=== PATIENT | female | born 1945 | race Caucasian/White ===

== ENCOUNTER → 2018-01-03 15:15 | Outpatient (CLI) | payer OTHER, SELFPAY ==
--- NOTE | 2018-01-03 15:19 | DI.RAD.S_ITS ---
PROCEDURE: XR LUMBAR SPINE 2-3V INDICATIONS: Chronic low back pain. TECHNIQUE: 3 views of the lumbar spine were acquired. COMPARISON: None. FINDINGS: Bones: 5 [id number] vertebrae are present. Loss of lordosis. Grade 1 spondylolisthesis L3-L4 and L4-L5. Grade one retrolisthesis L5-S1. Multilevel disc degeneration, severe L5-S1. Moderate L3-L4, L4-L5 and L5-S1 facet joint arthropathy. No vertebral body compression fractures. No suspicious bony lesions. Soft tissues: Overlying bowel gas pattern is normal. No suspicious soft tissue calcifications. Vascular calcifications indicate atherosclerosis. IMPRESSION: Multilevel degenerative change. Dictated by: Otis SALAS Interpreted: Jama Minor MD on 01/03/2018 at 15:40 Approved by: Jama Minor M.D. on 01/06/2018 at 9:54
--- NOTE | 2018-01-03 15:19 | DI.RAD.S_ITS ---
PROCEDURE: XR HIP W PEL IF DONE LT MIN 4V INDICATIONS: Chronic low back pain. TECHNIQUE: AP pelvis with lateral view(s) of the left and right hip(s). COMPARISON: [facility], , XR LUMBAR SPINE 2-3V, 01/03/2018, 14:56. FINDINGS: Bones: No fractures or dislocations. Pelvic ring appears intact. No suspicious bony lesions. Mild symmetric hip and SI joint narrowing with periarticular osteophyte formation. Degenerative disc and facet disease involves the inferior lumbar spine. Soft tissues: The visualized bowel gas pattern is normal. No suspicious soft tissue calcifications. 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 Dictated by: tOis SALAS Interpreted: Jama Minor MD on 01/03/2018 at 15:42 Approved by: Jama Minor M.D. on 01/06/2018 at 9:54
== END ==
PROVIDERS: PCP Internal Medicine; Visit Provider Physical Medicine & Rehabilitation
DX: M51.37 Other intervertebral disc degeneration, lumbosacral region (principal); M47.26 Other spondylosis with radiculopathy, lumbar region; M47.27 Other spondylosis with radiculopathy, lumbosacral region; M47.28 Other spondylosis with radiculopathy, sacral and sacrococcygeal region; M16.0 Bilateral primary osteoarthritis of hip; M43.16 Spondylolisthesis, lumbar region; M25.551 Pain in right hip; M54.5 Low back pain; G89.29 Other chronic pain
CPT/HCPCS: 72100; 73522

== ENCOUNTER → 2020-03-28 12:07 | Outpatient (CLI) | payer OTHER, SELFPAY | PROVIDERS: PCP Internal Medicine; Referring Provider Internal Medicine; Visit Provider Internal Medicine Rheumatology | DX: M12.9 Arthropathy, unspecified (principal); Z53.20 Procedure and treatment not carried out because of patient's decision for unspecified reasons ==

== ENCOUNTER → 2022-06-07 12:11 | Outpatient (CLI) | payer OTHER, SELFPAY ==
--- NOTE | 2022-06-07 12:12 | DI.MRI.S_ITS ---
PROCEDURE: MR HAND RT WO/W CON INDICATIONS: Arthropathy, unspecified TECHNIQUE: Coronal and axial T1 spin echo and T2 fast spin echo with fat saturation. Post-contrast coronal and axial T1 spin echo with fat saturation images through the right hand and wrist. COMPARISON: [facility], CR, XR HAND 3+ VIEWS BILATERAL, 12/16/2019, 13:33. FINDINGS: Image quality: Excellent. Bones and cartilage: Alignment of right hand and wrist is anatomic. There is joint space narrowing and subchondral sclerosis throughout wrist joints more notably involving 1st CMC joint and scaphoid trapezial joint with suggestion of subcortical cystic area and edema in 1st and 2nd metacarpal bases and throughout carpal bones . Contrast enhancement in these areas also noted. Overlying cortical disruption are also seen adjacent to the area of edema within the carpal bones and metacarpal bases. Subcortical cystic areas also noted involving radial aspect of 2nd through 4th metacarpal heads and show subtle contrast enhancement in these areas . No other area of abnormal marrow signal is seen. Synovium: No significant abnormal synovial thickening or enhancement is seen. No significant fluid distending extensor or flexor tendon sheaths to suggest tenosynovitis. Soft tissues: No enhancing soft tissue mass is seen. No abnormal fluid collection. IMPRESSION: 1. 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 2. No significant synovial thickening or enhancement. No evidence of tenosynovitis. Dictated by: Murray Colorado M.D. on 06/07/2022 at 16:36 Approved by: Murray Colorado M.D. on 06/07/2022 at 16:41
--- NOTE | 2022-06-07 12:12 | DI.MRI.S_ITS ---
PROCEDURE: MR HAND LT WO/W CON INDICATIONS: Arthropathy, unspecified TECHNIQUE: Coronal and axial T1 spin echo and T2 fast spin echo with fat saturation. Post-contrast coronal and axial T1 spin echo with fat saturation images through the left hand and wrist. COMPARISON: [facility], CR, XR HAND 3+ VIEWS BILATERAL, 12/16/2019, 13:33. FINDINGS: Image quality: Excellent. Bones and cartilage: There is joint space narrowing and subchondral sclerosis at 1st CMC joint. Subcortical cystic areas are noted involving 1st metacarpal base and adjacent distal triquetrum. Subcortical cystic changes also noted involving radial aspect of 3rd and 5th metacarpal heads. Contrast enhancement are noted in the above-mentioned area concerning for erosive changes. Synovium: There is no significant thickening of synovial lining or abnormal enhancement to suggest synovitis. No significant fluid distension of the flexor or extensor tendon she is to suggest tenosynovitis. Soft tissues: No enhancing soft tissue mass is seen. Possible small ganglion cyst involving volar aspect of ulnar styloid and measures 8 x 5 mm in size. IMPRESSION: 1. Suggestion of erosive changes involving 1st metacarpal base, distal triquetrum, distal scaphoid, and radial aspect of 3rd and 5th metacarpal heads. 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 2. No signs of synovitis or tenosynovitis. Extensor and flexor tendons are intact. No enhancing soft tissue mass. Suggestion of a small ganglion cyst over volar aspect of ulnar styloid. Dictated by: Murray Colorado M.D. on 06/07/2022 at 16:41 Approved by: Murray Colorado M.D. on 06/07/2022 at 16:45
== END ==
PROVIDERS: PCP Internal Medicine; Referring Provider Internal Medicine Rheumatology; Visit Provider Internal Medicine Rheumatology
DX: M12.9 Arthropathy, unspecified (principal)
CPT/HCPCS: 73220; A9579